=== PATIENT | female | born 1985 | race Caucasian/White ===

== ENCOUNTER 2019-03-29 09:39 | Emergency (ER) | payer OTHER ==
[~2019-03-29] VITALS: Ht 157.5 cm; Wt 54.4 kg
[~2019-03-29 09:39] MED LIST: IBUPROFEN800 MG PO
== END 2019-03-29 12:33 | disposition home or self-care (01) ==
LOC: ER 09:39
DX: N83.299 Other ovarian cyst, unspecified side (principal); R10.2 Pelvic and perineal pain

== ENCOUNTER 2019-12-26 13:56 | Emergency (ER) | payer OTHER ==
[~2019-12-26] VITALS: Ht 157.5 cm; Wt 59.0 kg
== END 2019-12-26 20:33 | disposition home or self-care (01) ==
LOC: ER 13:56
DX: N83.292 Other ovarian cyst, left side (principal); R10.32 Left lower quadrant pain